=== PATIENT | female | born 1975 | race Caucasian/White ===

== ENCOUNTER → 2020-06-15 | Outpatient (CLI) | payer BC | END | disposition home or self-care (01) | LOC: LAB EV 09:03 → LAB SHORT 09:03 | DX: N39.0 Urinary tract infection, site not specified (principal) | CPT/HCPCS: 87077; 87086; 87186 ==

== ENCOUNTER 2020-06-30 21:24 | Emergency (ER) | payer BC ==
[~2020-06-30] VITALS: Ht 162.6 cm; Wt 69.8 kg
== END 2020-06-30 23:37 | disposition home or self-care (01) ==
LOC: ER 21:24
DX: S01.511A Laceration without foreign body of lip, initial encounter (principal); F17.210 Nicotine dependence, cigarettes, uncomplicated; W10.9XXA Fall (on) (from) unspecified stairs and steps, initial encounter
CPT/HCPCS: 12013; 70450; 70486; 72125; 99283-25; A9270; A9270-GY

== ENCOUNTER → 2021-03-29 | Outpatient (CLI) | payer BC | END | disposition home or self-care (01) | LOC: LAB 11:07 → LAB SHORT 11:07 | DX: D22.5 Melanocytic nevi of trunk (principal) | CPT/HCPCS: 88305 ==